=== PATIENT | male | born 1975 | race Native Hawaiian/Other Pacific Islander ===

== ENCOUNTER 2016-04-17 01:26 | Emergency (ER) | payer BC ==
[~2016-04-17] VITALS: Ht 193 cm; Wt 127.0 kg
[2016-04-17] MEDS ORDERED: ZANTAC 75 PO (01:40)
[2016-04-17 02:29] LABS: PLATELET COUNT 212 K/uL (142-355)
[2016-04-17 02:37] LABS: POTASSIUM 3.9 mmol/L (3.6-5.2); SODIUM 132 mmol/L (136-145)
[2016-04-17 06:20] VITALS: BP 133/81; TEMP 98.4
== END 2016-04-17 06:35 | disposition home or self-care (01) ==
LOC: ED 01:26
PROVIDERS: Specialist
DX: R51 Headache (principal); R11.10 Vomiting, unspecified; R19.7 Diarrhea, unspecified
CPT/HCPCS: 36415; 80053; 82150; 83690; 85027; 96374; 96375; 99284; J1170; J2175; J2550

== ENCOUNTER 2019-08-15 15:58 | Emergency (ER) | payer BC ==
[~2019-08-15] VITALS: Ht 193 cm; Wt 127.0 kg
[~2019-08-15 15:58] MED LIST: ZANTAC 75 PO
[2019-08-15 16:33] LABS: PLATELET COUNT 237 K/uL (142-355)
[2019-08-15 16:38] LABS: POTASSIUM 3.6 mmol/L (3.6-5.2)
[2019-08-15 19:00] VITALS: BP 115/73; TEMP 98
== END 2019-08-15 19:00 | disposition home or self-care (01) ==
LOC: ED 15:58
PROVIDERS: Family Medicine
DX: R19.7 Diarrhea, unspecified (principal); T62.91XA Toxic effect of unspecified noxious substance eaten as food, accidental (unintentional), initial encounter
CPT/HCPCS: 80053; 82150; 83690; 85027; 96360; 96375; 96376; 99284; J1885; J2405; J3490

== ENCOUNTER 2023-05-17 08:15 | Emergency (ER) | payer BC ==
[~2023-05-17] VITALS: Ht 193 cm; Wt 117.9 kg
[2023-05-17 08:25] VITALS: TEMP 99.1
[2023-05-17] MEDS ORDERED: TORADOL 30MG/ML INJ INJ ONE ×2 (08:31→11:28)
[2023-05-17] MEDS ORDERED: SODIUM CHLORIDE 0.9% 1,000 ML IV ONE ×4 (08:32→10:17)
[2023-05-17] MEDS ORDERED: Ondansetron HCl 4 MG INJ INJ ONE (08:34)
[2023-05-17] MEDS ORDERED: TORADOL 30MG/ML INJ ONE ×4 (08:36→11:27)
[2023-05-17 08:50] LABS: PLATELET COUNT 280 K/uL (142-355)
[2023-05-17 08:58] LABS: POTASSIUM 4.7 mmol/L (3.6-5.2)
[2023-05-17] MEDS ORDERED: AMOXICILLIN & POT CLAVULANATE 875 MG TAB PO ONE ×2 (11:08→11:17)
[2023-05-17 11:36] VITALS: BP 136/108
== END 2023-05-17 11:36 | disposition home or self-care (01) ==
LOC: ED 08:15
PROVIDERS: Internal Medicine Endocrinology, Diabetes & Metabolism
DX: M54.59 Other low back pain (principal); R10.9 Unspecified abdominal pain; R11.2 Nausea with vomiting, unspecified; K52.9 Noninfective gastroenteritis and colitis, unspecified; N20.0 Calculus of kidney
CPT/HCPCS: 36415; 80053; 81002; 85027; 96365; 96374; 96375; 96376; 99284; J1885; J2405